=== PATIENT | female | born 2000 | race African-American/Black ===

== ENCOUNTER 2019-05-15 09:19 | Outpatient (CLI) | payer OTHER, SELFPAY ==
[2019-05-15 17:36] LABS: Alanine Aminotransferase 9 U/L (4-35); Albumin Level 3.3 g/dL (3.5-5.1); Alkaline Phosphatase 237 U/L (38-126); Aspartate Amino Transferase 17 U/L (14-36); Bilirubin,Total 0.2 mg/dL (0.2-1.3); Blood Urea Nitrogen 6 mg/dL (7-17); Calcium 8.9 mg/dL (8.4-10.2); Carbon Dioxide 20 mmol/L (22-30); Chloride 102 mmol/L (98-107); Estimated Glomerular Filt Rate > 60; Glucose 89 mg/dL (65-105); Sodium 135 mmol/L (137-145)
[2019-05-20 19:17] LABS: Chenodeoxycholic Acid <0.5 umol/L (< OR = 3.9); Cholic Acid 0.9 umol/L (< OR = 2.8); Deoxycholic Acid 0.7 umol/L (< OR = 2.3); Total Bile Acids 1.7 umol/L (< OR = 8.3)
== END 2019-05-15 09:20 | disposition home or self-care (01) ==
PROVIDERS: Visit Provider Advanced Practice Midwife
DX: R21 Rash and other nonspecific skin eruption (principal)
CPT/HCPCS: 36415; 80053; 82542

== ENCOUNTER 2019-05-20 16:33 | Observation (INO) | payer MEDICAID, SELFPAY ==
--- NOTE | 2019-05-20 16:33 | OBADM ---
This patient, Pedro Clemons, admitted to the OB room Labor/Delivery/Recovery 104 for observation. Patient/family oriented to hospital policies and general routines including ID bracelet, bed and alarms, visiting hours, pain management, procedures, bathroom and other care routines, personal items, smoking policy, room service/diet, and visiting hours. Patient/Family are encouraged to report perceived risks to care and to ask questions if they do not understand what they are told or what they should do.
[2019-05-20 16:45] VITALS: BMI 27.3
--- NOTE | 2019-05-24 08:01 | PM.OBTRLD ---
OB - Triage/Final Diagnosis Final Diagnosis (1) False labor: Code(s): O47.9 - False labor, unspecified Status: Acute
== END 2019-05-20 18:01 | disposition home or self-care (01) ==
PROVIDERS: Admitting Provider Obstetrics & Gynecology; Visit Provider Obstetrics & Gynecology
DX: O47.1 False labor at or after 37 completed weeks of gestation (principal); Z3A.37 37 weeks gestation of pregnancy
CPT/HCPCS: G0378; G0379

== ENCOUNTER 2019-05-29 11:56 | Inpatient (IN) | payer MEDICAID, SELFPAY ==
[2019-05-29] VITALS (98 sets, daily range): BP systolic 120–193; BP diastolic 61–128; PULSE 59–122; TEMP 36.4–37.1; O2SAT 96–100; BMI 27.6
[2019-05-29] MEDS: LACTATED RINGERS 1,000 ML 125 ML IV CONT ×4 (13:02→21:44)
[2019-05-29] MEDS: AMPICILLIN 2 GM/NS 100 ML 2 GM/100 ML BAG IVPB (13:09)
[2019-05-29 13:20] LABS: Basophils Percent Auto 0.3 % (0.2-1.2); Eosinophils Absolute Auto 0.4 K/mm3 (0-0.3); Eosinophils Percent Auto 3.2 % (0-4.4); Hemoglobin 10.2 g/dL (12.0-15.0); Immature Granulocyte Absolute 0.05 K/mm3 (0.00-0.031); Immature Granulocyte Percent A 0.4 % (0-0.5); Lymphocytes Absolute Auto 1.63 K/mm3 (0.9-3.2); Lymphocytes Percent Auto 12.9 % (18.3-44.2); Mean Corpuscular Hemoglobin 31.2 pg (26-34); Mean Corpuscular Volume 91.7 fl (80-100); Mean Platelet Volume 10.9 fl (7.4-10.4); Monocytes Absolute Auto 0.8 K/mm3 (0.1-0.6); Monocytes Percent Auto 6.3 % (2.6-8.5); Neutrophils Absolute Auto 9.7 K/mm3 (1.3-6.7); Neutrophils Percent Auto 76.9 % (45.5-73.1); Platelet Count Result 240 k/mm3 (150-375); Red Blood Count 3.27 M/mm3 (4.2-5.4); Red Cell Distribution Width 12.4 % (11.5-14.5); White Blood Count 12.6 K/mm3 (4.5-10.0)
[2019-05-29 13:34] LABS: Alanine Aminotransferase 11 U/L (4-35); Albumin Level 3.6 g/dL (3.5-5.1); Alkaline Phosphatase 251 U/L (38-126); Aspartate Amino Transferase 17 U/L (14-36); Bilirubin,Total 0.1 mg/dL (0.2-1.3); Blood Urea Nitrogen 3 mg/dL (7-17); Calcium 9.3 mg/dL (8.4-10.2); Carbon Dioxide 21 mmol/L (22-30); Chloride 106 mmol/L (98-107); Estimated Glomerular Filt Rate > 60; Glucose 94 mg/dL (65-105); Potassium 3.9 mmol/L (3.4-5.0); Sodium 134 mmol/L (137-145); Uric Acid 4.4 mg/dL (2.5-7.5)
[2019-05-29] MEDS: AMPICILLIN 1 GM/NS 50 ML 1 GM/50 ML BAG IVPB ×2 (16:33→21:43)
--- NOTE | 2019-05-29 16:42 | LDADM ---
This patient, Pedro Clemons, was admitted to Labor/Delivery/Recovery 107 on 05/29/19 at 11:56. Plans for labor, pain management and were discussed with patient. Patient/family oriented to hospital policies and general routines including ID bracelet, bed and alarms, visiting hours, pain management, procedures, bathroom and other care routines, personal items, smoking policy, room service/diet and guest tray routines, infant security routines, call light, and visiting hours. Patient/Family are encouraged to report perceived risks to care and to ask questions if they do not understand what they are told or what they should do. See OBIX for further documentation.
--- NOTE | 2019-05-29 17:58 | WPDOBADMIT ---
Obstetrics - Admit Note Admission Note: 19y/o G1 @ 38w4d here for induction of labor d/t gestational hypertension. Pt presented for routine ob visit and had 2nd elevated blood pressure. Pt stated she just didn't feel well. Discussed risk vs benefit and pt agreed to proceed with induction VSS Contractions irregular FHR category 1 Cervix 3-4/70/-1 AROM moderate amount of clear odorless fluid Epidural if desired Anticipate record reviewed. No pertinent additions to the history and/or any subsequent changes in the physical findings that are not consistent with the expected course of the were found. Additions to the history and/or subsequent changes in the physical findings follow. None.
--- NOTE | 2019-05-29 19:14 | WPDANESEPP ---
Anes - Eval Pre Procedure Procedure: LAbor epidural Date/Time: 05/29/19 19:14 Surgeon: Pedro Preop Diagnosis: Abd pain with contractions Pre Op Diagnosis: Induction of Labor Patient Data Age: 19 Gender: F Height: 5 ft 3 in Weight: 70.6 kg Last Vital Signs Temp 98.8 F 05/29/19 17:42 Pulse 75 05/29/19 18:31 BP 148/91 H 05/29/19 18:31 Allergies Allergy/AdvReac Type Severity Reaction Status Date / Time No Known Allergies Allergy Verified 05/14/19 13:45 Home Medications Medication Instructions Recorded Confirmed Type PNV cmb#95-ferrous fumarate-FA 1 tablet PO DAILY 05/14/19 05/14/19 History [] Laboratory Tests 05/29/19 05/29/19 05/29/19 13:10 13:10 13:10 WBC 12.6 K/mm3 H K/mm3 (4.5-10.0) RBC 3.27 M/mm3 L M/mm3 (4.2-5.4) Hgb 10.2 g/dL L g/dL (12.0-15.0) Hct 30.0 % L % (37.0-47.0) MCV 91.7 fl fl (80-100) MCH 31.2 pg pg (26-34) MCHC 34.0 g/dl g/dl (32-36) RDW 12.4 % % (11.5-14.5) Plt Count 240 k/mm3 k/mm3 (150-375) MPV 10.9 fl H fl (7.4-10.4) Immature Gran % (Auto) 0.4 % % (0-0.5) Neut % (Auto) 76.9 % H % (45.5-73.1) Lymph % (Auto) 12.9 % L % (18.3-44.2) Bertie % (Auto) 6.3 % % (2.6-8.5) Eos % (Auto) 3.2 % % (0-4.4) Baso % (Auto) 0.3 % % (0.2-1.2) Lymph # (Auto) 1.63 K/mm3 K/mm3 (0.9-3.2) Bertie # (Auto) 0.8 K/mm3 H K/mm3 (0.1-0.6) Eos # (Auto) 0.4 K/mm3 H K/mm3 (0-0.3) Baso # (Auto) 0.0 K/mm3 K/mm3 (0.0-0.1) Abs Immat Gran (auto) 0.05 K/mm3 H K/mm3 (0.00-0.031) Absolute Neuts (auto) 9.7 K/mm3 H K/mm3 (1.3-6.7) Absolute Nucleated RBC 0.0 K/mm3 K/mm3 (0.0-0.012) Nucleated RBC % 0.0 % % (0.0-0.2) Sodium Potassium Chloride Carbon Dioxide BUN Creatinine Estim Creat Clear Calc Estimated GFR Glucose Uric Acid Cancelled Calcium Total Bilirubin AST ALT Alkaline Phosphatase Total Protein Albumin RPR Pending Blood Type Antibody Screen 05/29/19 05/29/19 13:10 13:10 WBC RBC Hgb Hct MCV MCH MCHC RDW Plt Count MPV Immature Gran % (Auto) Neut % (Auto) Lymph % (Auto) Bertie % (Auto) Eos % (Auto) Baso % (Auto) Lymph # (Auto) Bertie # (Auto) Eos # (Auto) Baso # (Auto) Abs Immat Gran (auto) Absolute Neuts (auto) Absolute Nucleated RBC Nucleated RBC % Sodium 134 mmol/L L mmol/L (137-145) Potassium 3.9 mmol/L mmol/L (3.4-5.0) Chloride 106 mmol/L mmol/L (98-107) Carbon Dioxide 21 mmol/L L mmol/L (22-30) BUN 3 mg/dL L mg/dL (7-17) Creatinine 0.50 mg/dL L mg/dL (0.7-1.0) Estim Creat Clear Calc Not Reportable Estimated GFR > 60 (59 - ) Glucose 94 mg/dL mg/dL (65-105) Uric Acid 4.4 mg/dL mg/dL (2.5-7.5) Calcium 9.3 mg/dL mg/dL (8.4-10.2) Total Bilirubin 0.1 mg/dL L mg/dL (0.2-1.3) AST 17 U/L U/L (14-36) ALT 11 U/L U/L (4-35) Alkaline Phosphatase 251 U/L H U/L (38-126) Total Protein 7.0 g/dL g/dL (6.3-8.2) Albumin 3.6 g/dL g/dL (3.5-5.1) RPR Blood Type A Positive Antibody Screen Negative Patient hx anesthesia problems: none Family hx anesthesia problems: none [facility] Past Medical History Medical History (Updated 05/29/19 @ 19:15 by Nghia Rouse CRNA) Overweight (BMI 25.0-29.
[2019-05-30] VITALS (34 sets, daily range): BP systolic 102–156; BP diastolic 66–120; PULSE 63–115; RESP 16–20; TEMP 36.8–37.2; O2SAT 99–100
[2019-05-30] MEDS: ONDANSETRON INJ 4 MG/2 ML VIAL IV PUSH (00:33)
[2019-05-30] MEDS: LACTATED RINGERS 1,000 ML 125 ML IV CONT (01:25)
[2019-05-30] MEDS: AMPICILLIN 1 GM/NS 50 ML 1 GM/50 ML BAG IVPB (01:58)
--- NOTE | 2019-05-30 03:15 | PC.NURSE ---
orders received from vargas schroeder cnm that if needed rn may place iupc and start amnioinfusion bolus of 300ml and continuos rate of 150ml/hr if pt has adequate fluid return from uterus.
--- NOTE | 2019-05-30 04:56 | PM.OBPRVD ---
OB - Delivery Note Procedure Delivery date: 05/30/19 Intrapartal events: None Induction method: per pitocin protocol Delivery monitor: external FHT and external uterine Route of delivery: Episiotomy description: None Laceration description: None Estimated blood loss (mL): 48 Anesthesia type: Epidural Baby Date of : 05/30/19 Time of : 04:41 Weeks of gestation at delivery: 38 Infant gender: Male Weight (pounds): 6 Weight (ounces): 5 presentation: vertex Placenta delivery description: Spontaneous cord vessel description: 3 Vessels, Nuchal Cord and Reduced score one minute: 8 score five minutes: 9 Narrative: Mother and baby in stable condition. Cord clamped at 4 minutes. Cord gasses collected. .5cc arterial 2cc venous.
[2019-05-30] MEDS: WITCH HAZEL 40 PADS 1 PAD TOPICAL (07:49)
[2019-05-30] MEDS: BENZOCAINE 20% AER SPR (*SP) 56 GM CAN 1 SPRAY TOPICAL (07:50)
[2019-05-30] MEDS: IBUPROFEN 600 MG TABLET PO ×3 (07:52→21:45)
[2019-05-30] MEDS: DOCUSATE SODIUM 100 MG CAPSULE PO ×2 (07:53→16:10)
[2019-05-30 09:51] LABS: Rapid Plasma Reagin Non-Reactive (NonReactive)
--- NOTE | 2019-05-30 11:02 | PC.NURSE ---
0725 Pt admitted to room 292 per wheelchair from labor and delivery after vaginal delivery of viable male at [address] Vasquez. Mother is a and is choosing to bottle feed infant. FOB present. Couple oriented to room, staffing and procedures; Admission folder reviewed. Pt's VSS and assessment WNL.
[2019-05-30] MEDS: ACETAMINOPHEN 325 MG TABLET 650 MG PO (21:45)
[2019-05-31] MEDS: ACETAMINOPHEN 325 MG TABLET 650 MG PO ×3 (04:55→16:48)
[2019-05-31] MEDS: IBUPROFEN 600 MG TABLET PO ×3 (04:55→16:49)
[2019-05-31 05:32] LABS: Hematocrit 27.6 % (37.0-47.0); Hemoglobin 9.3 g/dL (12.0-15.0)
--- NOTE | 2019-05-31 06:50 | PC.NURSE ---
PT introductions made and plan of care discussed per post , pain management, bottle feeding, daily care activities. PT verbalized understanding of such care.
--- NOTE | 2019-05-31 07:59 | PM.OBPNVD ---
OB - PN: Subj Subjective Date/time seen: 05/31/19 07:59 Patient comments: no complaints and pain well controlled baby status: doing well OB - PN: Obj Data Labs CBC & Chem 7: 05/31/19 04:50 05/29/19 13:10 Labs: Laboratory Results - last 24 hr 05/29/19 05/31/19 13:10 04:50 Hgb 9.3 L Hct 27.6 L RPR Non-reactive OB - PN A/P Plan day: 1 Plan: routine care Time Spent With Patient Time: Total time spent is greater than 50% in coordination of care (as documented) at patient's floor/unit and/or counseling patient: Review of Systems Review of Systems: All systems reviewed & are unremarkable except as noted in HPI and below Exam Narrative: Exam Narrative: Fundus firm and vaginal flow controlled. Denies h/a, v/d, or e/p. Const: General: comfortable Resp: Effort & Inspection: normal respiratory effort Auscultation: clear to auscultation bilaterally Cardio: Rate: regular rate Extrem: General: normal to inspection Right lower extremity: normal to inspection Left lower extremity: normal to inspection Psych: Appearance: grossly normal Affect: normal affect Attitude: cooperative Judgement: Good judgement present (Psych)
[2019-05-31 10:20] VITALS: BP 137/79; PULSE 65; RESP 18; TEMP 36.5; O2SAT 100
[2019-05-31] MEDS: DOCUSATE SODIUM 100 MG CAPSULE PO ×2 (10:29→16:48)
[2019-05-31] MEDS: POLYSACCHARIDE IRON COMPLEX 150 MG CAPSULE PO ×2 (10:29→16:48)
[2019-05-31] MEDS: TETANUS,DIPHTHERIA,AC PERTUSSIS ADULT 0.5 ML (ADACEL) IM (10:34)
--- NOTE | 2019-05-31 10:34 | WPDANLDPN2 ---
Anes-Prog Note L&D Date/Time: 05/31/19 10:34 Comfortable throughout: labor and delivery Neuraxial method: epidural Epidural/Spinal procedure site: clean & non-tender Neuro status: Neuro function grossly intact. Cardiovascular status: normal Respiratory status: normal Airway patency: baseline Mental status: baseline Post-Op hydration status: normal Vital Signs: Last Vital Signs Temp 37.1 C 05/30/19 20:50 Pulse 70 05/30/19 20:50 Resp 16 05/30/19 20:50 BP 143/90 H 05/30/19 20:50 Pulse Ox 99 05/30/19 12:00 Post-procedural complaints: none Patient feedback: Patient satisfied with anesthetic care.
[2019-05-31 21:20] VITALS: BP 148/93; PULSE 68; RESP 16; TEMP 36.8
[2019-06-01] MEDS: IBUPROFEN 600 MG TABLET PO (05:04)
[2019-06-01] MEDS: ACETAMINOPHEN 325 MG TABLET 650 MG PO (05:05)
--- NOTE | 2019-06-01 07:27 | P.DS_ITS ---
OB - DS: Summary OB Procedures : None OB Procedures Intrapartum: Spontaneous Vag Delivery OB Procedures: : None Time Spent with Patient Time attestation: Total time spent providing and/or coordinating discharge services: Exam Const: General: comfortable Resp: Effort & Inspection: normal respiratory effort Psych: Appearance: grossly normal Affect: normal affect Discharge Plan Discharge Attending physician on discharge: Shana Jerry Discharging Clinician: Gissel Alexandra Patient Disposition: Home, Self-Care Activity: pelvic rest Diet: regular Patient Instructions: Antibiotic Form Stand Alone Forms: General Discharge Information Follow-up/Referrals: Yasemin Olson CNM [Certified Nurse Records Analyst] - 1 Week (1 week bp check and 4 week pp) Discharge Medications: Continued PNV cmb#95-ferrous fumarate-FA [] 28 mg iron- 800 mcg Tablet 1 tablet PO DAILY RF: 0 Date of admission: 05/29/19 11:56 Primary Care Provider: UNKNOWN,DOCTOR Admitting Provider: Danuta Vasquez Attending physician on admission: Danuta Vasquez
--- NOTE | 2019-06-01 07:27 | PM.OBPNVD ---
OB - PN: Subj Subjective Date/time seen: 06/01/19 07:27 OB - PN: Obj Data Labs CBC & Chem 7: 05/31/19 04:50 05/29/19 13:10 OB - PN A/P Plan day: 2 Plan: discharge home Time Spent With Patient Time: Total time spent is greater than 50% in coordination of care (as documented) at patient's floor/unit and/or counseling patient: Review of Systems Review of Systems: All systems reviewed & are unremarkable except as noted in HPI and below Constitutional: Constitutional: Reports as per HPI Exam Const: General: comfortable Resp: Effort & Inspection: normal respiratory effort Psych: Appearance: grossly normal Affect: normal affect Attitude: cooperative
[2019-06-01 08:25] VITALS: BP 137/83; PULSE 68; RESP 18; TEMP 37.1; O2SAT 100
[2019-06-01] MEDS: DOCUSATE SODIUM 100 MG CAPSULE PO (09:07)
[2019-06-01] MEDS: POLYSACCHARIDE IRON COMPLEX 150 MG CAPSULE PO (09:07)
[2019-06-01 09:40] LABS: Hematocrit 36.1 % (37.0-47.0); Hemoglobin 12.1 g/dL (12.0-15.0); Mean Corpuscular HGB Conc 33.5 g/dl (32-36); Mean Corpuscular Hemoglobin 31.3 pg (26-34); Mean Corpuscular Volume 93.3 fl (80-100); Mean Platelet Volume 10.7 fl (7.4-10.4); Platelet Count Result 270 k/mm3 (150-375); Red Blood Count 3.87 M/mm3 (4.2-5.4); Red Cell Distribution Width 12.7 % (11.5-14.5); White Blood Count 13.1 K/mm3 (4.5-10.0)
[2019-06-01 10:31] LABS: Alanine Aminotransferase 12 U/L (4-35); Albumin Level 3.4 g/dL (3.5-5.1); Alkaline Phosphatase 184 U/L (38-126); Aspartate Amino Transferase 24 U/L (14-36); Bilirubin,Total 0.3 mg/dL (0.2-1.3); Blood Urea Nitrogen 5 mg/dL (7-17); Carbon Dioxide 25 mmol/L (22-30); Chloride 103 mmol/L (98-107); Estimated CRCL calculation 120 ml/min; Estimated Glomerular Filt Rate > 60; Glucose 102 mg/dL (65-105); Potassium 3.7 mmol/L (3.4-5.0); Sodium 134 mmol/L (137-145); Uric Acid 4.3 mg/dL (2.5-7.5)
--- NOTE | 2019-06-01 11:05 | PC.NURSE ---
Pt. states TDaP given 06/02/19. Pulled from [facility] at 1030 on 05/31/19, not documented on EMR.
--- NOTE | 2019-06-01 11:30 | PC.NURSE ---
Patient viewed the discharge video Mother & Baby Care, The First Two Weeks . Patient was given the opportunity and encouraged to ask questions. Patient verbalized understanding of information shared and has been given the mother/baby guide for home reference.
[2019-06-02 08:05] VITALS: BP 142/81; PULSE 77; RESP 18; TEMP 36.4
== END 2019-06-01 12:26 | disposition home or self-care (01) | DRG 560 ==
LOC: ANHLDR 12:21 → ANHOB2 05-30 07:33
PROVIDERS: Advanced Practice Midwife; Admitting Provider Obstetrics & Gynecology; Visit Provider Obstetrics & Gynecology
DX: O13.4 Gestational [pregnancy-induced] hypertension without significant proteinuria, complicating childbirth (principal); Z37.0 Single live birth; Z3A.38 38 weeks gestation of pregnancy; O99.824 Streptococcus B carrier state complicating childbirth; O69.81X0 Labor and delivery complicated by cord around neck, without compression, not applicable or unspecified
CPT/HCPCS: 36415; 80053; 84550; 85014; 85018; 85025; 85027; 86592; 86850; 86900; 86901; 90715; A9270; J0290; J2405; J2590; J2795; J7120